=== PATIENT | female | born 1945 | race African-American/Black ===

== ENCOUNTER 2022-03-26 11:04 | Outpatient (CLI) | payer MEDICARE, OTHER | END 2022-03-26 11:05 | disposition home or self-care (01) | LOC: LABBT 11:04 | PROVIDERS: ATTEND Ophthalmology Retina Specialist | DX: Z20.822 Contact with and (suspected) exposure to COVID-19 (principal) | CPT/HCPCS: 87811 ==

== ENCOUNTER 2022-03-30 10:45 | Day surgery (SDC) | payer MEDICARE, OTHER ==
[2022-03-29 08:54] VITALS: BMI 27.3
[~2022-03-30 10:45] MED LIST: EPINEPHrine 0.3 MG in Ophthalmic Irrigation Solution 500 ML IRR SCH
[2022-03-30] MEDS ORDERED: fentaNYL Citrate/PF 100 MCG/2 ML SYRINGE ONE ×2 (11:50→15:32)
[2022-03-30] MEDS ORDERED: Ondansetron PF 4 MG/2 ML Vial ONE ×2 (11:50→14:26)
[2022-03-30] MEDS ORDERED: Famotidine/PF 20 mg/2ml Vial ONE (11:51)
[2022-03-30] MEDS ORDERED: Cyclopentolate 1% Opth Drop 2 ML BOT ONE (12:15)
[2022-03-30] MEDS ORDERED: Phenylephrine 2.5% Ophth Soln 5 ML BOT ONE (12:15)
[2022-03-30] MEDS ORDERED: Lidocaine 2% 10 ML INJ ONE (13:14)
[2022-03-30] MEDS ORDERED: Bupivacaine 0.75% 10 ML VIAL ONE (14:26)
[2022-03-30] MEDS ORDERED: Maxitrol 0.1% Opth Oint 3.5 GM TUBE ONE (14:26)
[2022-03-30] MEDS ORDERED: Lidocaine 4% PF 5 ML AMP ONE (14:26)
[2022-03-30] MEDS ORDERED: Triamcinolone 40 MG/ML VIAL ONE (14:26)
[2022-03-30] MEDS ORDERED: PROPOFOL 200 MG/20 ML VIAL ONE (14:26)
[2022-03-30] MEDS ORDERED: CEFAZOLIN 1 GM VIAL ONE (14:26)
[2022-03-30] MEDS ORDERED: Lidocaine 1% PF 5 ML VIAL ONE (14:26)
== END 2022-03-30 17:30 | disposition home or self-care (01) ==
LOC: SDC 10:45
PROVIDERS: ATTEND Ophthalmology Retina Specialist
PROC: 08T43ZZ Resection of Right Vitreous, Percutaneous Approach (ICD-10-PCS; principal; 2022-03-30)
DX: H33.41 Traction detachment of retina, right eye (principal); Z79.82 Long term (current) use of aspirin; Z79.899 Other long term (current) drug therapy; Z88.2 Allergy status to sulfonamides
CPT/HCPCS: C1814; C2617; J0171; J0690; J2405; J2704; J3301; J3490; S0028